=== PATIENT | female | born 1990 | race Caucasian/White ===

== ENCOUNTER 2017-09-22 21:47 | Emergency (ER) | payer OTHER ==
[~2017-09-22] VITALS: Ht 170.2 cm; Wt 74.8 kg
[~2017-09-22 21:47] MED LIST: KEFLEX500 MG PO; NORCO 5-325 TA1 EACH PO; PRENATAL-FOLIC1 EACH PO
[2017-09-23] MEDS ORDERED: SERTRALINE HCL50 MG (00:38)
[2017-09-23] MEDS ORDERED: NAPROSYN500 MG PO (01:08)
== END 2017-09-23 01:33 | disposition home or self-care (01) ==
LOC: ED 21:47
DX: S46.912A Strain of unspecified muscle, fascia and tendon at shoulder and upper arm level, left arm, initial encounter (principal); F17.200 Nicotine dependence, unspecified, uncomplicated; X58.XXXA Exposure to other specified factors, initial encounter; Z79.899 Other long term (current) drug therapy
CPT/HCPCS: 99283

== ENCOUNTER 2021-03-28 10:42 | Emergency (ER) | payer OTHER ==
[~2021-03-28] VITALS: Ht 170.2 cm; Wt 74.8 kg
[~2021-03-28 10:42] MED LIST changes: +NAPROSYN500 MG PO; +SERTRALINE HCL50 MG
[2021-03-28] MEDS ORDERED: PRENA1 CHEW TA1.4 MG PO (11:03)
== END 2021-03-28 14:10 | disposition home or self-care (01) ==
LOC: ED 10:42
DX: O03.4 Incomplete spontaneous abortion without complication (principal); F17.200 Nicotine dependence, unspecified, uncomplicated
CPT/HCPCS: 76801; 76817; 84702; 84703; 85025; 96374; 99284-25; J2405; J7030

== ENCOUNTER 2021-04-16 11:07 | Day surgery (SDC) | payer OTHER ==
[~2021-04-16] VITALS: Ht 165.1 cm; Wt 74.8 kg
[~2021-04-16 11:07] MED LIST changes: +PRENA1 CHEW TA1.4 MG PO
--- OUTSIDE RECORDS SUMMARY | 2021-04-16 13:16 | XMS ---
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 Joanna has no Care Guidelines for this patient. Verna V[facility] COUNT (12 MO.) [facility] NOTE: Visits indicate total known visits. ED/C VISIT TRACKING (12 MO.) [facility] COMPLAINT: - CRAMPING, VAGINAL BLEEDING 03/28/2021 10:[address] [facility] [place] TYPE: Emergency COMPLAINT: - VAGINAL BLEEDING DIAGNOSES: - Nicotine dependence, unspecified, uncomplicated - Incomplete spontaneous without complication - Lower abdominal pain, unspecified INPATIENT VISIT TRACKING (12 MO.) No inpatient visits to display in this time frame [email or web address]
[2021-04-16] MEDS ORDERED: HYDROCODON-ACE1 EA10 PO (18:32)
[2021-04-16] MEDS ORDERED: MOTRIN IB200 MG PO (18:32)
--- NOTE | 2021-04-23 09:16 | OR ---
[facility] [address] [place], [place] [address] Signed DATE OF OPERATION: 04/16/2021 SURGEON: Maury Hess MD PREOPERATIVE DIAGNOSIS: Ruptured right tubal . POSTOPERATIVE DIAGNOSIS: Ruptured right tubal . PROCEDURE: Laparoscopic right salpingectomy with removal of ruptured tubal . SURGEON: Maury Hess MD. GLOBAL UPSTREAM MARKETING MANAGER: Dr. Odonnell. ANESTHESIA: General. ESTIMATED BLOOD LOSS: 100 mL plus 1500 mL of old blood in the abdomen at the start of case. COMPLICATIONS: None. DRAINS: None. FINDINGS: Cervix is closed, small amount of blood in the vagina. Uterus normal size and shape. The left tube was normal in length and normal-appearing fimbriated end. No adhesions. The left ovary is normal size and shape without any evidence of endometriosis or adhesions. The right tube was quite enlarged approximately 10 cm in diameter with rupture of the tube near the distal end with a large amount of clot adherent to the tube, ovary and the right pelvic sidewall. There was a very large amount of free old blood in the pelvis surrounding all the pelvic structures. There were 3 deep peritoneal defects in the posterior cul-de-sac and one on the right pelvic Electronically Signed By: MAURY HESS MD 04/23/21 0916 PATIENT NAME: FAM HURT OPERATIVE REPORT DATE OF : [birth year] REPORT #: [id number] PHYSICIAN: MAURY HESS MD PCP: MAYE BUSBY REPORT IS CONFIDENTIAL AND NOT TO BE RELEASED WITHOUT AUTHORIZATION [facility] [address] [place], [place] [address] Signed sidewall, probably from deep infiltrating endometriosis. The appendix appeared normal and no adhesions or masses were seen. DESCRIPTION OF PROCEDURE: The patient was brought to the operating room, placed in supine position. After adequate general anesthesia was obtained, was placed in the dorsal lithotomy position, prepped and draped in the usual sterile fashion. A Haynes catheter was placed in the bladder. Weighted speculum was placed in the vagina and the anterior lip of the cervix was grasped with a long Allis clamp. Hulka clamp was carefully introduced in the cervical canal and attached to the anterior lip of cervix. Allis clamp and weighted speculum were removed. Attention was then drawn to the abdomen. A small infraumbilical skin incision was made with a scalpel after injecting the area with 0.25% Marcaine with epinephrine. Subcutaneous tissue was dissected with Metzenbaum scissors and the fascia identified, grasped with hemostats, elevated, nicked with Metzenbaum scissors and extended in transverse fashion using Metzenbaum scissors. The abdominal musculature and peritoneum were bluntly opened with finger dissection. Retention stitches of 0 Vicryl suture placed in the fascia above and below the incision. The Harpreet cannula and sleeve then entered the abdomen under direct visualization. The sleeve balloon was filled with air and the upper sleeve brought down to the skin and tightened in place. The two retention stitches were tied to this outer sleeve. The trocar was removed. The abdomen was insufflated with carbon dioxide. The laparoscope with video attachment entered the abdomen under direct visualization. The above findings were noted. Two 5 mm ports were placed just below the level of the umbilicus, one on each side, approximately 10 cm lateral to the midline. With each the abdomen was transilluminated to avoid any vessels and the skin then injected with 0.25% Marcaine with epinephrine. A small skin incision made and bladed. 5-mm trocar and sleeve entered the abdomen under direct visualization. The trocar was removed and the balloon filled with air and blunt grasper inserted one side and suction electrical and radio mock up mechanic in the other side used to suction irrigate the fluid out so that the extent of the ruptured tube could be seen. There was a large amount of clots in the ruptured tube and the tube was adherent to the sidewall and the ovary making it difficult to remove the tube from the ovary, so hydrodissection was used in the tube to clean out the clots and better identify the extent of the rupture, which seemed to be on the posterior aspect of the tube. The LigaSure bipolar [place] forceps were then used to cauterize along the mesosalpinx removing the tube along the entire length and then cauterizing and cutting across the proximal portion of the tube, the ruptured tube and ectopic were then placed in a 10 mm bag while a 5 mm scope was used for visualization placed in the lateral port. With tube and ectopic in the bag, bag was brought out through the incision, removing the 10 mm sleeve and then after removal of the tube, the 10 mm sleeve was placed back in the same fashion and then the 10 mm scope used again. The entire Electronically Signed By: MAURY HESS MD 04/23/21 0916 PATIENT NAME: FAM HURT OPERATIVE REPORT DATE OF : [birth year] REPORT #: [id number] PHYSICIAN: MAURY HESS MD PCP: MAYE BUSBY REPORT IS CONFIDENTIAL AND NOT TO BE RELEASED WITHOUT AUTHORIZATION [place] [address] Signed pelvis was irrigated suctioned examined. There was some clot and fibrin attached to the ovary and the pelvic sidewall. This was gently removed with blunt graspers. There was some oozing of blood on the surface of the ovary. This was controlled with a spatula tip monopolar taking care to stay well away from any bowel. When good hemostasis was obtained, the entire pelvis was again irrigated suctioned examined and the pelvic sidewall also carefully examined, but good hemostasis was noted there. It was decided not to attempt any treatment of the endometriosis since this was not part of the plan and this deep excision would increase the risks. Tisseel was then sprayed over the raw area of the pelvic sidewall and ovary and again good hemostasis was noted. At this point, no other tissue was seen in the pelvis. So all instruments were removed. The gas allowed to escape and the final sleeve removed. The infraumbilical incision was closed using running stitch of 0 Vicryl suture. The two retention stitches were tied together for further support of the fascia. The 3 skin incisions closed using subcuticular stitches of 4-0 Vicryl suture. The Hulka clamp and the Haynes were removed. The vagina showed no excess bleeding. The patient tolerated the procedure well went to recovery room in good condition. The sponge, needle, and instrument count correct at the end of the procedure. The tube and ectopic were sent to Pathology for identification. MD LESLY Conteh/SADA /[id number] cc: RADHA Sellers Copies: MAYE BUSBY ~ Electronically Signed By: MAURY HESS MD 04/23/21 0916 PATIENT NAME: FAM HURT OPERATIVE REPORT DATE OF : [birth year] REPORT #: [id number] PHYSICIAN: MAURY HESS MD PCP: MAYE BUSBY REPORT IS CONFIDENTIAL AND NOT TO BE RELEASED WITHOUT AUTHORIZATION
== END 2021-04-16 20:50 | disposition home or self-care (01) ==
LOC: ED 11:07 → DS 15:10 → DSVR 15:10 → MS 18:58 → DS 20:50
PROVIDERS: ATTEND General Practice
PROC: 0UT54ZZ Resection of Right Fallopian Tube, Percutaneous Endoscopic Approach (ICD-10-PCS; 2021-04-16)
PROC: 10T24ZZ Resection of Products of Conception, Ectopic, Percutaneous Endoscopic Approach (ICD-10-PCS; principal; 2021-04-16 15:20)
DX: O00.101 Right tubal pregnancy without intrauterine pregnancy (principal); F17.200 Nicotine dependence, unspecified, uncomplicated; Z20.822 Contact with and (suspected) exposure to COVID-19
CPT/HCPCS: 00840; 76801; 76817; 76830; 76856; 80053; 84702; 85025; 88305; 96374; 96375; 99285-25; C9803; J0330; J1100; J1170; J1885; J2001; J2250; J2370; J2405; J2704; J3010; J7121; U0003

== ENCOUNTER 2022-10-02 05:07 | Inpatient (IN) | payer OTHER ==
[~2022-10-02] VITALS: Ht 165.1 cm; Wt 78.0 kg
[~2022-10-02 05:07] MED LIST changes: +HYDROCODON-ACE1 EA10 PO; +MOTRIN IB200 MG PO
--- NOTE | 2022-10-02 12:28 | PR ---
[facility] [address] [facility] [place], [place] [address] Signed Progress Notes IP Datetime Report Generated by CPN: 10/02/2022 12:28 PROGRESS NOTES: [id number] Impression: Normal Progression of Labor Plan: Continue Present Management VITAL SIGNS: [id number] Vital Signs: Reviewed; Within Normal Limits EXAM: [id number] Dilatation: 6.0 Effacement: 100 Station: -1 Contractions: acontractile MEMBRANES: [id number] Membranes Status: Ruptured Amniotic Fluid Color: Clear Comments: Initially no change and not feeling contractions 2h after AROM. Started low-dose pitocin, now progressing well. Comfortable with epidural. Cervix now anterior. Continue low-dose pitocin, anticipate FETUS A: [id number] FHR Baseline: 120 Variability: Moderate 6-25bpm Accelerations: 15X15 Decelerations: None FHR Category: Category I Presentation: Vertex Comments on Fetus A: No evidence of acidemia FETUS B: [id number] Signing Physician: Fang Pineda DO Copies: ~ *Electronically Signed* 10/02/22 1228 FANG PINEDA DO PATIENT NAME: AFM HURT PROGRESS NOTE DATE OF : [birth year] PHYSICIAN: FANG PINEDA DO RPT #: [id number] REPORT IS CONFIDENTIAL AND NOT TO BE RELEASED WITHOUT AUTHORIZATION
--- NOTE | 2022-10-03 11:15 | PR ---
[facility] [address] [place], [place] [address] Signed PP Progress Notes Datetime Report Generated by BRIAN: 10/03/2022 11:15 SUBJECTIVE: [id number] Pain: Within Normal Limits Nausea/Vomiting: Denies Flatus: Yes Bowel Movement: No Vital Signs: [id number] Vital Signs: Reviewed; Within Normal Limits Cardiovascular: Normal Respiratory: Normal Abdomen/Uterus: Normal Lochia: Normal CVA Tenderness: Normal Extremities: Normal Progress: Normal Exam Comments: NAD, resting in bed holding baby RRR No dyspnea/ retractions Abd SNTND, FFBU Ext: 1+ BLLE edema, neg Charles's BL IMPRESSION/PLAN/PROCEDURES: [id number] Impression: Normal Progression; Difficulties Plan: Continue Present Management; Discharge Progress Notes: 32 yo PPD#1 s/p uncomplicated over intact perineum -Hgb 9.7 from 11.7 on admission, asymptomatic -Progressing well : pain well-controlled with orals, lochia moderate - well, worried about supply/ output, plan for outpatient appointment -Desires sterilization for contraception, planning minipill in the interim Anticipate DC to home today on oral iron, consult early next week, office follow-up in 2 weeks Signing Physician: Fang Pineda DO *Electronically Signed* 10/03/22 1115 FANG PINEDA DO PATIENT NAME: FAM HURT PROGRESS NOTE DATE OF : [birth year] PHYSICIAN: FANG PNIEDA #: [id number] REPORT IS CONFIDENTIAL AND NOT TO BE RELEASED WITHOUT AUTHORIZATION
== END 2022-10-03 14:30 | disposition home or self-care (01) | DRG 807 ==
LOC: FBC 05:07
PROVIDERS: ADMIT Obstetrics & Gynecology; ATTEND Obstetrics & Gynecology
PROC: 10E0XZZ Delivery of Products of Conception, External Approach (ICD-10-PCS; principal; 2022-10-02)
PROC: 00HU33Z Insertion of Infusion Device into Spinal Canal, Percutaneous Approach (ICD-10-PCS; 2022-10-02)
PROC: 3E0R3BZ Introduction of Anesthetic Agent into Spinal Canal, Percutaneous Approach (ICD-10-PCS; 2022-10-02)
DX: O99.334 Smoking (tobacco) complicating childbirth (principal); Z37.0 Single live birth; Z67.20 Type B blood, Rh positive; F17.210 Nicotine dependence, cigarettes, uncomplicated; O99.344 Other mental disorders complicating childbirth; F41.8 Other specified anxiety disorders; O99.02 Anemia complicating childbirth; D64.9 Anemia, unspecified; Z3A.39 39 weeks gestation of pregnancy
CPT/HCPCS: 36415; 85027; 86850; 86900; 86901; A9270; J2590; J2795; J7121

== ENCOUNTER 2024-11-14 05:53 | Inpatient (IN) | payer OTHER ==
[~2024-11-14] VITALS: Ht 165.1 cm; Wt 84.8 kg
[2024-11-14] MEDS ORDERED: MAGNESIUM HYDROXIDE/AL HYDROX 30 ML CUP PO PRN ×2 (06:00→17:45)
[2024-11-14] MEDS ORDERED: LACTATED RINGER'S 1,000 ML IV PRN (06:00)
[2024-11-14] MEDS ORDERED: LACTATED RINGER'S 1,000 ML IV SCH (06:00)
[2024-11-14] MEDS ORDERED: CALCIUM CARBONATE 500 MG CHEW PO PRN ×2 (06:00→17:45)
[2024-11-14] MEDS ORDERED: OXYTOCIN/0.9 % SODIUM CHLORIDE 500 ML IV SCH ×2 (06:00→17:45)
[2024-11-14 06:47] VITALS: BP 103/57
[2024-11-14 07:03] LABS: HEMATOCRIT 35.5 % (35.0-50.0); HEMOGLOBIN 12.5 g/dL (12.0-18.0); MCH 33.1 (27-36); MCHC 35.3 g/dl (30-36); MCV 93.9 fl (81-99); RBC 3.78 M/ul (4.3-5.7); RDW 13.1 (10.5-15.0)
[2024-11-14 07:25] LABS: AMPHETAMINES, URINE NEGATIVE (NEGATIVE); BARBITURATES, URINE NEGATIVE (NEGATIVE); BENZODIAZEPINE, URINE NEGATIVE (NEGATIVE); BUPRENORPHINE, URINE NEGATIVE (NEGATIVE); CANNABINOID, URINE NEGATIVE (NEGATIVE); COCAINE, URINE NEGATIVE (NEGATIVE); ECSTASY, URINE NEGATIVE (NEGATIVE); FENTANYL, URINE NEGATIVE (NEGATIVE); METHADONE, URINE NEGATIVE (NEGATIVE); OPIATES, URINE NEGATIVE (NEGATIVE); OXYCODONE, URINE NEGATIVE (NEGATIVE); PHENCYCLIDINE, URINE NEGATIVE (NEGATIVE)
[2024-11-14 08:05] LABS: ABO B
[2024-11-14 08:06] LABS: ANTIBODY SCREEN NEGATIVE; RH POSITIVE
[2024-11-14] MEDS ORDERED: fentaNYL citrate 100 MCG/2 ML VIAL ONE (12:01)
[2024-11-14] MEDS ORDERED: ROPIVACAINE 0.2% 200 ML BAG ONE (12:01)
[2024-11-14] MEDS ORDERED: LACTATED RINGER'S 2,000 ML IV ONE (12:45)
[2024-11-14] MEDS ORDERED: ROPIVACAINE 0.2% 200 ML BAG EPIDURAL SCH (12:45)
[2024-11-14] MEDS ORDERED: ePHEDrine sulfate 5 MG/ML SYRINGE IV PRN (12:45)
[2024-11-14] MEDS ORDERED: LACTATED RINGER'S 500 ML IV PRN (12:45)
[2024-11-14] MEDS ORDERED: HYDROCORTISONE ACETATE 25 MG SUPP PR PRN (17:45)
[2024-11-14] MEDS ORDERED: ACETAMINOPHEN 325 MG TAB PO PRN (17:45)
[2024-11-14] MEDS ORDERED: BENZOCAINE 60 ML AEROSOL TOP PRN (17:45)
[2024-11-14] MEDS ORDERED: LIDOCAINE 2% VISCOUS 6 ML SYR TOP ONE ×2 (17:45)
[2024-11-14] MEDS ORDERED: MAGNESIUM HYDROXIDE 30 ML UDC PO PRN (17:45)
[2024-11-14] MEDS ORDERED: WITCH HAZEL/GLYCERIN 1 EA PAD TOP PRN (17:45)
[2024-11-14] MEDS ORDERED: IBUPROFEN 600 MG TAB PO PRN (17:45)
[2024-11-14] MEDS ORDERED: SENNOSIDES/DOCUSATE 1 EA TAB PO SCH (21:00)
[2024-11-15] MEDS ORDERED: NICOTINE 14 MG/24 HR 1 EA TDSY TD ONE (19:45)
[2024-11-15] MEDS ORDERED: HYDROCODONE/ACETA 5/325 TAB PO ONE (20:00)
--- NOTE | 2024-11-16 09:25 | PR ---
[facility] [address] [place], [place] [address] Signed PP Progress Notes Datetime Report Generated by CPN: 11/16/2024 09:24 SUBJECTIVE: [id number] Pain: Within Normal Limits Nausea/Vomiting: Denies Flatus: Yes Bowel Movement: Yes Vital Signs: [id number] Vital Signs: Reviewed; Within Normal Limits Cardiovascular: Normal Respiratory: Normal Abdomen/Uterus: Normal Lochia: Normal Vulva/Perineum: Not Done Breasts: Not Done CVA Tenderness: Normal Extremities: Normal Incision: Not Applicable Progress: Normal Exam Comments: Fundus firm U-2 nontender IMPRESSION/PLAN/PROCEDURES: [id number] Impression: Normal Progression Plan: Discharge Procedures: None Progress Notes: Pt seen and examined. Doing well. Ambulating, voiding, and tolerating full diet. Pain controlled and lochia minimal. C/O hemorrhoidal pain. No fevers/chills or other concerns. Bottle feeding well. Desires d/c home today. Reviewed d/c instructions and medications. Planning pp tubal ligation for contraception. Desires to continue nicotine patch and will rx. Declines antidepressents. No other questions or concerns Signing Physician: Daryl Lopes DO Copies: ~ *Electronically Signed* 11/16/24 0924 DARYL LOPES (RAYMUNDO) DO PATIENT NAME: FAM HURT PROGRESS NOTE DATE OF : [birth year] PHYSICIAN: DARYL LOPES (JD) DO RPT #: [id number] REPORT IS CONFIDENTIAL AND NOT TO BE RELEASED WITHOUT AUTHORIZATION
== END 2024-11-16 11:25 | disposition home or self-care (01) | DRG 807 ==
LOC: FBC 05:53
PROVIDERS: ADMIT Advanced Practice Midwife; ATTEND Advanced Practice Midwife
PROC: 10E0XZZ Delivery of Products of Conception, External Approach (ICD-10-PCS; principal; 2024-11-14)
PROC: 10907ZC Drainage of Amniotic Fluid, Therapeutic from Products of Conception, Via Natural or Artificial Opening (ICD-10-PCS; 2024-11-14)
PROC: 3E033VJ Introduction of Other Hormone into Peripheral Vein, Percutaneous Approach (ICD-10-PCS; 2024-11-14)
PROC: 00HU33Z Insertion of Infusion Device into Spinal Canal, Percutaneous Approach (ICD-10-PCS; 2024-11-14)
PROC: 3E0R3BZ Introduction of Anesthetic Agent into Spinal Canal, Percutaneous Approach (ICD-10-PCS; 2024-11-14)
DX: O99.334 Smoking (tobacco) complicating childbirth (principal); Z37.0 Single live birth; O76 Abnormality in fetal heart rate and rhythm complicating labor and delivery; O69.81X0 Labor and delivery complicated by cord around neck, without compression, not applicable or unspecified; Z3A.39 39 weeks gestation of pregnancy; F17.210 Nicotine dependence, cigarettes, uncomplicated; Z98.890 Other specified postprocedural states; Z90.721 Acquired absence of ovaries, unilateral; Z79.899 Other long term (current) drug therapy
CPT/HCPCS: 01960; 36415; 80307; 85027; 86850; 86900; 86901; A9270; J2795; J3010; J7121

== ENCOUNTER 2025-01-31 07:50 | Day surgery (SDC) | payer OTHER ==
[2025-01-29 15:25] VITALS: BP 108/63
[~2025-01-31] VITALS: Ht 167.6 cm; Wt 86.4 kg
--- NOTE | ~2025-01-31 | OR ---
[facility] [address] [facility] [place] [address] Draft DATE OF OPERATION: 01/31/2025 SURGEON: Daryl Lopes DO PREOPERATIVE DIAGNOSES: 1. Desires salpingectomy. 2. History of right salpingectomy. PROCEDURE PERFORMED: Laparoscopic left salpingectomy. ANESTHESIA: General. ESTIMATED BLOOD LOSS: 25 mL. SPECIMEN: Left fallopian tube. COMPLICATIONS: None. DRAINS: None. INDICATIONS: Ms. Villalpando is a very pleasant 34-year-old female, who presents desiring salpingectomy for sterilization and for ovarian cancer risk reduction. She has completed her fertility. She does have a history of ruptured right ectopic , status post salpingectomy. The risks, benefits, and alternatives were discussed in detail with the patient. The patient understands and wished to proceed with the procedure. DESCRIPTION OF PROCEDURE: The patient was taken to the OR where a time-out was performed to confirm correct patient and correct procedure. General anesthesia was adequately established. The patient was prepped and draped in the dorsal lithotomy position with her feet in Yellofin stirrups. ICPs were on and running and no preoperative antibiotics or heparin was indicated. A Haynes catheter was inserted. A weighted speculum was placed in the vagina. The anterior lip of the cervix was grasped with Allis clamp. The cervix was PATIENT NAME: FAM VILLALPANDO OPERATIVE REPORT DATE OF : [birth year] REPORT #: [id number] PHYSICIAN: DARYL LOPES) PCP: EAMON MCCONNELL MD REPORT IS CONFIDENTIAL AND NOT TO BE RELEASED WITHOUT AUTHORIZATION [facility] [address] [place], [place] [address] Draft gently dilated using Hegar dilators and a [employer] uterine manipulator was placed. The surgeon's gloves were changed and attention was turned to the abdomen. The base of the umbilicus was infiltrated with 0.25% Marcaine with epinephrine and a 5 mm stab incision was made with 11 blade scalpel. A 5 mm trocar was placed under direct visualization without complication and pneumoperitoneum was established. Survey of the abdomen and pelvis was performed demonstrating normal liver, gallbladder, stomach, uterus, bilateral ovaries and confirms history of right salpingectomy. The left fallopian tube appeared normal. 5 mm assist ports were placed in the left lower and right lower quadrant under direct visualization without complication. The fimbriated end of the left fallopian tube was grasped with a blunt grasper, elevated and dissected along the mesosalpinx using LigaSure device. The tube was amputated at the cornu and removed and sent to pathology for further evaluation. Excellent hemostasis was appreciated. Pneumoperitoneum was reduced. Trocars were removed and trocar sites were repaired with 3-0 Vicryl Rapide in a subcuticular stitch. Haynes catheter was removed and the patient was taken to PACU in good and stable condition. Sponge, needle and instrument counts were correct x2 at the end of the procedure. Daryl Lopes DO JFOZIA/BARTOLOL /[id number] Copies: ~ PATIENT NAME: FAM VILLALPANDO OPERATIVE REPORT DATE OF : [birth year] REPORT #: [id number] PHYSICIAN: DARYL LOPES (RAYMUNDO) PCP: EAMON MCCONNELL MD REPORT IS CONFIDENTIAL AND NOT TO BE RELEASED WITHOUT AUTHORIZATION
[~2025-01-31 07:50] MED LIST changes: +IBLOOD GLUCOSE TEST STRIP 1 EA TEST VI PRN; +LACTATED RINGER'S 1,000 ML IV SCH; +LIDOCAINE HCL 1% 5 ML SDV INJ ONE; +SPRINTEC 28 DA1 EACH PO
[2025-01-31 08:15] VITALS: BP 107/66
[2025-01-31] MEDS ORDERED: fentaNYL citrate 100 MCG/2 ML VIAL ONE (10:38)
[2025-01-31] MEDS ORDERED: MIDAZOLAM HCL 2 MG/2 ML VIAL ONE (10:38)
[2025-01-31] MEDS ORDERED: ROCURONIUM BROMIDE 50 MG/5 ML SYR ONE ×2 (10:39→12:29)
[2025-01-31] MEDS ORDERED: propofoL 200 MG/20 ML VIAL ONE (10:39)
[2025-01-31] MEDS ORDERED: LIDOCAINE HCL 2% 5 ML SDV ONE (10:39)
[2025-01-31] MEDS ORDERED: LACTATED RINGER'S 0 ML IV ONE (10:57)
[2025-01-31] MEDS ORDERED: DEXAMETHASONE SOD PHOS 4 MG/ML VIAL ONE (12:29)
[2025-01-31] MEDS ORDERED: KETOROLAC TROMETHAMINE 30 MG/ML VIAL ONE (12:29)
[2025-01-31] MEDS ORDERED: ondansetron HCL 4 MG/2 ML VIAL ONE (12:29)
[2025-01-31] MEDS ORDERED: OXYCODONE/APAP 5/325 TAB PO PRN (13:00)
[2025-01-31] MEDS ORDERED: fentaNYL citrate 50 MCG/ML SDV IV PRN (13:00)
[2025-01-31] MEDS ORDERED: droPERidol 5 MG/2 ML VIAL IV PRN (13:00)
[2025-01-31] MEDS ORDERED: SIMETHICONE 80 MG CHEW PO PRN (13:00)
[2025-01-31] MEDS ORDERED: FAMOTIDINE 20 MG TAB PO PRN (13:00)
[2025-01-31] MEDS ORDERED: MORPHINE SULFATE 10 MG/ML VIAL IV PRN (13:00)
[2025-01-31] MEDS ORDERED: MAGNESIUM HYDROXIDE/AL HYDROX 30 ML CUP PO PRN (13:00)
[2025-01-31] MEDS ORDERED: SIMETHICONE 80 MG CHEW PO SCH (13:00)
[2025-01-31] MEDS ORDERED: ondansetron HCL 4 MG/2 ML VIAL IV PRN ×2 (13:00)
[2025-01-31] MEDS ORDERED: NALOXONE HCL 0.4 MG SYR IV PRN ×2 (13:00)
[2025-01-31] MEDS ORDERED: IBLOOD GLUCOSE TEST STRIP 1 EA TEST VI PRN (13:00)
[2025-01-31] MEDS ORDERED: METOCLOPRAMIDE HCL 10 MG/2 ML SDV IV PRN (13:00)
[2025-01-31 13:25] VITALS: BP 122/73
[2025-01-31 14:30] VITALS: BP 110/68
[2025-01-31] MEDS ORDERED: SEVOFLURANE 250 ML BTL INH ONE (14:50)
[2025-01-31 15:45] VITALS: BP 115/69
--- NOTE | 2025-02-02 15:24 | PATH ---
[facility] [address] [place], [place] [address] Signed SPECIMEN(S): A LEFT FALLOPIAN TUBE SPECIMEN SOURCE: A. LEFT FALLOPIAN TUBE CLINICAL HISTORY: Prophylactic salpingectomy-risk reduction ovarian cancer. History of right salpingectomy. FINAL PATHOLOGIC DIAGNOSIS: Left fallopian tube: - Benign fimbriated oviduct. JVR:clv MICROSCOPIC EXAMINATION: Histologic sections of all submitted blocks are examined by light microscopy. These findings, together with the gross examination, support the pathologic diagnosis. GROSS DESCRIPTION: The specimen, labeled and designated "Irasema, S, " and designated on the requisition "left fallopian tube," is received in formalin and consists of 6.1 x 0.9 cm fallopian tube with delicate fimbriae and paratubal cyst. The serosal surface is violaceous and smooth. Cut sections reveal a pinpoint lumen. Fimbriae are entirely submitted. Engineer Of System Development sections are submitted in (A1-A2). FB (under the direct supervision of a pathologist) The Gross Description was prepared using a voice recognition system. The report was reviewed for accuracy; however, sound-alike word errors, addition and/or deletions may occur. If there is any question about this report, please contact Client Services. PERFORMING LABORATORY: Technical component was performed by [employer], [address] [place] [id number] (CLIA# [id number]). Professional interpretation was performed by [facility], [address] [place] [address], [place] [address] (CLIA#: [id number]). Diagnostician: Koby Small MD Pathologist Electronically Signed 02/02/2025 PATIENT NAME: FAM HURT PATHOLOGY DATE OF : [birth year] REPORT #: [id number] PHYSICIAN: [facility] PCP: EAMON MCCONNELL MD REPORT IS CONFIDENTIAL AND NOT TO BE RELEASED WITHOUT AUTHORIZATION [address] [address] Signed Copies: ~ PATIENT NAME: FAM HURT PATHOLOGY DATE OF : [birth year] REPORT #: [id number] PHYSICIAN: [facility] PCP: EAMON MCCONNELL MD REPORT IS CONFIDENTIAL AND NOT TO BE RELEASED WITHOUT AUTHORIZATION
== END 2025-01-31 16:12 | disposition home or self-care (01) ==
LOC: DS 07:50 → OPS 07:50 → DS 10:00 → OPS 16:12
PROVIDERS: ATTEND Obstetrics & Gynecology
PROC: 0UT64ZZ Resection of Left Fallopian Tube, Percutaneous Endoscopic Approach (ICD-10-PCS; principal; 2025-01-31 10:00)
DX: Z40.03 Encounter for prophylactic removal of fallopian tube(s) (principal); Z87.891 Personal history of nicotine dependence; Z80.3 Family history of malignant neoplasm of breast; Z79.899 Other long term (current) drug therapy; Z90.79 Acquired absence of other genital organ(s)
CPT/HCPCS: 00840; J1100; J1885; J2003; J2250; J2405; J2704; J3010; J3490; J7121